=== PATIENT | male | born 1955 | race Caucasian/White ===

== ENCOUNTER 2017-07-22 10:57 | Day surgery (SDC) | payer MEDICAID ==
[~2017-07-22 10:57] MED LIST: BUPIVACAINE HCL 0.75% INJ/PF (7.5 MG/1 ML) 10 ML SDV OS PRN; CHONDR SU A NA/HYALUR INTRAOC KIT (SURGICARE) ONE; EPINEPHRINE INJ/PF 1 MG/1 ML AMPULE ONE; KETOROLAC TROMETHAMINE 0.45% 4 DROP/0.4 ML DROPERETTE OS PRN; LIDOCAINE 4% INJ/PF (40 MG/ML) 5 ML AMPUL OS PRN; NORMAL SALINE INJ/PF 0.9% 10 ML SDV ONE; VANCOMYCIN HCL INJ 1000 MG VIAL ONE
[2017-07-22] MEDS: TROPICAMIDE 1% OPH SOLN 3 ML OS PRN ×3 (11:23→11:43)
[2017-07-22] MEDS: CYCLOPENTOLATE 0.2%/PHENYLEPHRINE 1% OPH SOLN 2 ML OS PRN ×3 (11:23→11:43)
[2017-07-22] MEDS: BESIFLOXACIN HCL 0.6% OPH SUSP 5 ML BOTTLE OS PRN ×3 (11:23→12:37)
[2017-07-22] MEDS: TETRACAINE HCL 0.5% OPH SOLN 0.6 ML DROPERETTE OS PRN ×2 (11:24→11:43)
[2017-07-22] MEDS ORDERED: MIDAZOLAM 2 MG/2 ML INJ ONE ×2 (11:35→12:17)
[2017-07-22] MEDS ORDERED: FENTANYL CITRATE INJ/PF 100 MCG/2 ML AMPUL ONE (11:35)
[2017-07-22] MEDS ORDERED: WATER FOR INJECTION,STERILE 10 ML SDV ONE (11:51)
[2017-07-22] MEDS ORDERED: NORMAL SALINE INJ/PF 0.9% 10 ML SDV ONE (12:07)
--- NOTE | 2017-07-22 12:58 | [facility] OPERATIVE REPORT E ---
[facility] Operative Report NAME: HANS PLASCENCIA AGE: 62Y DATE OF SURGERY: 07/22/2017 ROOM: PREOPERATIVE DIAGNOSIS: CATARACT, LEFT EYE POSTOPERATIVE DIAGNOSIS: CATARACT, LEFT EYE. PROCEDURE PERFORMED: Phacoemulsification with posterior chamber intraocular lens, left eye. SURGEON: JESSICA LONGO M.D. ANESTHESIA: Topical with MAC. INDICATIONS FOR SURGERY: Difficulty driving and reading. Best corrected visual acuity 20/200. DESCRIPTION OF PROCEDURE: The patient was brought to the operating room and placed on the operative table. Following tetracaine drops, topical anesthesia was administered. This consisted of instrument wipe pledgets soaked in a solution of 4% Xylocaine mixed with 0.75% Marcaine in a 1:2 ratio. A 2 x 1 cm pledget was placed in the superior fornix. A 1 x 1 cm pledget was placed in the inferior fornix. The eye was patched shut for 5 minutes. The patch was removed. The eye was sterilely prepped and draped in the usual manner. Lid speculum was placed in the eye. The pledgets were removed, 4-0 black silk sutures were placed around the superior and the inferior rectus muscles to be used as traction. A conjunctival peritomy was made at the 10 o'clock position. Hemostasis was obtained with bipolar cautery. A posterior limbal groove was created using a crescent knife and dissected anteriorly towards the cornea. A sharp point blade was used to create a paracentesis site at the 2 o'clock position. A 2.4 mm keratome was used to enter the anterior chamber through the groove. Viscoelastic was injected into the anterior chamber. An anterior capsulotomy was performed using Utrata forceps in a capsulorrhexis fashion. Hydrodissection and hydrodelineation were performed. Phacoemulsification was performed in [id number]-[id number] technique. A total of 10.79 CDE total phaco time was used. Following this, the I/A unit was used to remove residual cortex. Viscoelastic was injected into the capsular bag. Intraocular lens Model [id number], 16.5 diopter, serial number [id number] was placed in the capsular bag. The I/A unit was used to removed residual viscoelastic. The wound was seen to be watertight under high and low pressure, and no sutures were placed. The intraocular lens was well centered. The pressure was adjusted in the eye to normal pressure. The 4-0 black silk sutures and lid speculum were removed. The eye was shielded after Besivance drops were placed. The patient tolerated the procedure well and was sent to the recovery room in good condition. DICTATING PHYSICIAN: JESSICA LONGO M.D. [id number] PHY#: [id number] ID: [id number] JOB#: [id number] ACCT: [id number] cc:JESSICA LONGO M.D. >
--- NOTE | 2017-07-22 12:58 | [facility] DISCHARGE SUMMARY E ---
[facility] Discharge Summary NAME: HANS PLASCENCIA AGE: 62Y ADMITTED: 07/22/2017 DISCHARGED: 07/22/2017 PREOPERATIVE DIAGNOSIS: CATARACT, LEFT EYE. POSTOPERATIVE DIAGNOSIS: CATARACT, LEFT EYE. HOSPITAL COURSE: Patient is a 62-year-old gentleman who underwent uneventful cataract extraction with intraocular lens implant, left eye, on 07/22/2017. DISPOSITION: He will be discharged to home. He is instructed to resume preoperative medications; take Tylenol as needed for discomfort; to keep his eye shielded; to use Pred Forte, Ketorolac, and Besivance 3:00 p.m. and 8:00 p.m.; and to follow up in my office in 1 day. DICTATING PHYSICIAN: JESSICA LONGO M.D. [id number] PHY#: [id number] ID: [id number] JOB#: [id number] ACCT: [id number] cc:JESSICA LONGO M.D. >
--- NOTE | 2017-07-22 13:33 | [facility] OPERATIVE REPORT E ---
[facility] Operative Report NAME: HANS PLASCENCIA AGE: 62Y DATE OF SURGERY: 07/22/2017 ROOM: ADDENDUM TO OPERATIVE NOTE: Following the surgery, 0.25 mg of vancomycin was injected in the inferior temporal conjunctiva. DICTATING PHYSICIAN: JESSICA LONGO M.D. [id number] PHY#: [id number] ID: [id number] JOB#: [id number] ACCT: [id number] cc:JESSICA LONGO M.D. >
[2017-07-22] MEDS ORDERED: LIDOCAINE 1% INJ-PF (10 MG/ML) 30 ML SDV ONE (14:09)
== END 2017-07-22 13:30 | disposition home or self-care (01) ==
LOC: SC 10:57
PROVIDERS: ATTEND Ophthalmology
PROC: 08RK3JZ Replacement of Left Lens with Synthetic Substitute, Percutaneous Approach (ICD-10-PCS; principal; 2017-07-22 12:00)
DX: H25.812 Combined forms of age-related cataract, left eye (principal); H01.011 Ulcerative blepharitis right upper eyelid; I10 Essential (primary) hypertension; E11.9 Type 2 diabetes mellitus without complications; Z79.899 Other long term (current) drug therapy; Z79.4 Long term (current) use of insulin; Z79.82 Long term (current) use of aspirin; Z86.14 Personal history of Methicillin resistant Staphylococcus aureus infection
CPT/HCPCS: 66984; 82962; V2632; J2250; J3490 ×7; J0171; J3010; J3370; 142

== ENCOUNTER 2018-11-14 10:16 | Inpatient (IN) | payer MEDICAID ==
--- NOTE | 2018-11-14 10:34 | ER Document Report ---
ED Medical Screen (RME) - General Chief Complaint: Wound Infection Stated Complaint: POSSIBLE ABSCESS Time Seen by Provider: 11/14/18 10:33 Primary Care Provider: TORY LI MD [Primary Care Provider] - Follow up as needed Mode of Arrival: Ambulatory Information source: Patient TRAVEL OUTSIDE OF THE [place] IN LAST 30 DAYS: No - HPI Patient complains to provider of: abscess Onset: Other - pt. with h/o MRSA with abscess in perineal area that has become swollen and tender - Related Data Allergies/Adverse Reactions: No Known Allergies Allergy (Verified 11/14/18 10:18) Past Medical History - Past Medical History Cardiac Medical History: Reports: Hx Hypercholesterolemia, Hx Hypertension Denies: Hx Heart Attack Pulmonary Medical History: Denies: Hx Asthma Neurological Medical History: Denies: Hx Cerebrovascular Accident, Hx Seizures Endocrine Medical History: Reports: Hx Diabetes Mellitus Type 2 GI Medical History: Denies: Hx Hepatitis, Hx Hiatal Hernia, Hx Ulcer Skin Medical History: Reports Hx MRSA Infectious Medical History: Denies: Hx Hepatitis Past Surgical History: Denies: Hx Open Heart Surgery, Hx Pacemaker - Immunizations Hx Diphtheria, Pertussis, Tetanus Vaccination: Yes Physical Exam - Vital signs Vitals: Temp Pulse Resp BP Pulse Ox 98.0 F 109 H 16 142/91 H 97 11/14/18 10:21 11/14/18 10:21 11/14/18 10:21 11/14/18 10:21 11/14/18 10:21 Course - Vital Signs Vital signs: Temp Pulse Resp BP Pulse Ox 98.0 F 109 H 16 142/91 H 97 11/14/18 10:21 11/14/18 10:21 11/14/18 10:21 11/14/18 10:21 11/14/18 10:21 Doctor's Discharge - Discharge Referrals: TORY LI MD [Primary Care Provider] - Follow up as needed
[2018-11-14] MEDS ORDERED: CLINDAMYCIN 600 MG/D5W RTU 600 MG/50 ML RTUPB IV ONE (11:24)
--- NOTE | 2018-11-14 11:35 | ER Document Report ---
Addendum entered and electronically signed by CASH SCHAFER PA-C 11/14/18 12:08: Discharge - Discharge Clinical Impression: Abdominal wall abscess Condition: Stable Disposition: ADMITTED INPATIENT Admitting Provider: Dhaval Unit Admitted: Medical Floor Course - Re-evaluation Re-evalutation: 11/14/18 12:07 Dr. Li patient and Dr. Puentes is covering who will admit pt to medical floor. - Vital Signs Vital signs: Temp Pulse Resp BP Pulse Ox 98.0 F 109 H 16 142/91 H 97 11/14/18 10:21 11/14/18 10:21 11/14/18 10:21 11/14/18 10:21 11/14/18 10:21 - Laboratory Result Diagrams: 11/14/18 11:52 11/14/18 11:52 Laboratory results interpreted by me: 11/14/18 11:43 POC Glucose 336 H Original Note: ED General - General Chief Complaint: Wound Infection Stated Complaint: POSSIBLE ABSCESS Time Seen by Provider: 11/14/18 10:33 Primary Care Provider: TORY LI MD [Primary Care Provider] - Follow up as needed Mode of Arrival: Ambulatory TRAVEL OUTSIDE OF THE [place] IN LAST 30 DAYS: No - HPI Notes: Patient is a 63-year-old male with a history of MRSA who presents to the emergency department complaining of another development of possible abscess to his suprapubic area of his abdomen that began 5 days ago. Patient states that he is needed incision and drainage performed in the past. He has had issues with MRSA for 10 years. Denies drug allergies. He is a type II diabetic and has HTN. He is not on any blood thinning medication aside from aspirin. Patient states that he has been eating and drinking without difficulty. He is urinating normally and having normal bowel movements. Denies drug allergies. No other concerns or complaints. Denies any headache, fever, neck pain, URI, sore throat, chest pain, palpitations, syncope, cough, shortness of breath, wheeze, dyspnea, abdominal pain, nausea/vomiting/diarrhea, urinary retention, dysuria, hematuria. - Related Data Allergies/Adverse Reactions: No Known Allergies Allergy (Verified 11/14/18 10:18) Past Medical History - General Information source: Patient - Social History Smoking Status: Never Smoker Chew tobacco use (# tins/day): No Frequency of alcohol use: None Drug Abuse: None Family History: Reviewed & Not Pertinent Patient has suicidal ideation: No Patient has homicidal ideation: No - Past Medical History Cardiac Medical History: Reports: Hx Hypercholesterolemia, Hx Hypertension Denies: Hx Heart Attack Pulmonary Medical History: Denies: Hx Asthma Neurological Medical History: Denies: Hx Cerebrovascular Accident, Hx Seizures Endocrine Medical History: Reports: Hx Diabetes Mellitus Type 2 Renal/ Medical History: Denies: Hx Peritoneal Dialysis GI Medical History: Denies: Hx Hepatitis, Hx Hiatal Hernia, Hx Ulcer Skin Medical History: Reports Hx MRSA Infectious Medical History: Denies: Hx Hepatitis Past Surgical History: Denies: Hx Open Heart Surgery, Hx Pacemaker - Immunizations Hx Diphtheria, Pertussis, Tetanus Vaccination: Yes Review of Systems - Review of Systems -: Yes All other systems reviewed and negative Physical Exam - Vital signs Vitals: Temp Pulse Resp BP Pulse Ox 98.0 F 109 H 16 142/91 H 97 11/14/18 10:21 11/14/18 10:21 11/14/18 10:21 11/14/18 10:21 11/14/18 10:21 - Notes Notes: PHYSICAL EXAMINATION: GENERAL: Well-appearing, well-nourished and in no acute distress. HEAD: Atraumatic, normocephalic. EYES: Pupils equal round and reactive to light, extraocular movements intact, sclera anicteric, conjunctiva are normal. ENT: Nares patent and without discharge. oropharynx clear without exudates. No tonsilar hypertrophy or erythema. Moist mucous membranes. NECK: Normal range of motion, supple without lymphadenopathy LUNGS: Breath sounds clear to auscultation bilaterally and equal. No wheezes rales or rhonchi. HEART: Regular rate and rhythm without murmurs, rubs, gallops. ABDOMEN: Soft, nondistended abdomen. No guarding, no rebound. Normal bowel sounds present. No CVA tenderness bilaterally. see skin below. Musculoskeletal: FROM to passive/active. Strength 5+/5. Extremities: No cyanosis, clubbing, or edema b/l. Peripheral pulses 2+. Capillary refill less than 3 seconds. NEUROLOGICAL: Cranial nerves grossly intact. Normal speech, normal gait. Normal sensory, motor exams PSYCH: Normal mood, normal affect. SKIN: there is a large 6"x3" indurated erythemic, warm area to the suprapubic ab d. + tenderness associated. Mild surrounding erythema noted. Course - Re-evaluation Re-evalutation: 11/14/18 11:37 Patient is an afebrile, well-hydrated, 63-year-old male who presents the emergency department with an abscess, suspect MRSA. Vitals are currently acceptable without significant tachycardia, tachypnea, or hypoxia. PE is otherwise unremarkable aside from the abscess/indurated area noted. General surgeon was notified after initial evaluation who also evaluated the patient and recommended surgery. Patient last ate cookies at 9 AM and drink some milk at that time. Labs and preop workup have been ordered. Patient to remain n.p.o. and IV clindamycin will be started. Dr. Amlonte accept pt (surgeon). Patient is in agreement with plan. 11/14/18 11:[address] almonte, sugar is 336 by accucheck. He would like hospitalist admit with surg consult. Spoke with Dr. Lieberman who accepted pt for admit. Labs pending. - Vital Signs Vital signs: Temp Pulse Resp BP Pulse Ox 98.0 F 109 H 16 142/91 H 97 11/14/18 10:21 11/14/18 10:21 11/14/18 10:21 11/14/18 10:21 11/14/18 10:21 - Laboratory Laboratory results interpreted by me: 11/14/18 11:43 POC Glucose 336 H Discharge - Discharge Clinical Impression: Abdominal wall abscess Condition: Stable Disposition: ADMITTED INPATIENT Admitting Provider: Hospitalist - Dr. Lieberman Unit Admitted: Telemetry Referrals: TORY LI MD [Primary Care Provider] - Follow up as needed
--- NOTE | 2018-11-14 11:59 | PDOC H&P ---
History of Present Illness Admission Date/PCP: 11/14/18 11:44 TORY LI History of Present Illness: HANS PLASCENCIA is a 63 year old male Patient is a 63-year-old male with a history of MRSA who presents to the emergency department complaining of another development of possible abscess to his suprapubic area of his abdomen that began 5 days ago. Patient states that he is needed incision and drainage performed in the past. He has had issues with MRSA for 10 years. Denies drug allergies. He is a type II diabetic and has HTN. He is not on any blood thinning medication aside from aspirin. Past Medical History Cardiac Medical History: Reports: Hyperlipidema, Hypertension Denies: Myocardial Infarction Pulmonary Medical History: Denies: Asthma Neurological Medical History: Denies: Seizures Endocrine Medical History: Reports: Diabetes Mellitus Type 2 GI Medical History: Denies: Hepatitis, Hiatal Hernia Psychiatric Medical History: Reports: None Hematology: Denies: Anemia, Sickle Cell Disease Past Surgical History Past Surgical History: Denies: Pacemaker Social History Smoking Status: Never Smoker Family History Family History: Reviewed & Not Pertinent Parental Family History Reviewed: No Children Family History Reviewed: No Sibling(s) Family History Reviewed.: No Medication/Allergy Home Medications: Aspirin [Aspirin EC] 81 mg PO DAILY 07/11/17 Glimepiride 4 mg PO DAILY 07/11/17 Metformin HCl [Metformin HCl ER] 1,000 mg PO BID 07/11/17 Simvastatin 40 mg PO QHS 07/11/17 Empagliflozin [Jardiance] 25 mg PO DAILY 11/14/18 Allergies/Adverse Reactions: No Known Allergies Allergy (Verified 11/14/18 10:18) Review of Systems Constitutional: PRESENT: fatigue Nose, Mouth, and Throat: PRESENT: other - nol complaints Cardiovascular: PRESENT: other - no chest pain or hx of cardiac disease Gastrointestinal: PRESENT: other - no generalized abd pain Genitourinary: PRESENT: other - no dysuria Musculoskeletal: PRESENT: other - no complaints Integumentary: PRESENT: other - has c/o old drained abscess both posterior calfs Neurological: PRESENT: other - no neuro complaints Psychiatric: PRESENT: other - no complaints Endocrine: PRESENT: other - no cold or heat intolerance Allergic/Immunologic: PRESENT: other - no known immunologic problems Physical Exam Vital Signs: Temp Pulse Resp BP Pulse Ox 98.0 F 109 H 16 142/91 H 97 03/23/19 10:21 11/14/18 10:21 11/14/18 10:21 11/14/18 10:21 11/14/18 10:21 Intake & Output 11/13/18 11/14/18 11/15/18 06:59 06:59 06:59 Weight 98.9 kg General appearance: PRESENT: no acute distress Head exam: PRESENT: atraumatic Eye exam: PRESENT: EOMI Ear exam: PRESENT: normal external ear exam Mouth exam: PRESENT: moist Neck exam: PRESENT: full ROM Respiratory exam: PRESENT: clear to auscultation eduardo Cardiovascular exam: PRESENT: RRR Pulses: PRESENT: normal radial pulses, normal femoral pulses Vascular exam: PRESENT: normal capillary refill GI/Abdominal exam: PRESENT: soft Rectal exam: PRESENT: deferred Gentrourinary exam: PRESENT: other - large suprpubic abscess with 15cm area over mons pubis that is cellulitic with approx 8cm fluctuant abscess Extremities exam: PRESENT: full ROM Musculoskeletal exam: PRESENT: full ROM Neurological exam: PRESENT: alert, awake, oriented to person, oriented to time, oriented to situation Skin exam: PRESENT: warm Assessment & Plan - Plan Summary Plan Summary: large suprapubic abscess, hx of mrsa diabetes with elevated blood glucose plan after admit and eval by medicine for his diabetes will plan on incision and drainage of suprapubic abscess discussed risks of bleeding ,infection recurrent abscesses, need for additional surgery skin loss. pt understands and agrees to proceed.
--- NOTE | 2018-11-14 12:22 | RADIOLOGY REPORT (SQ) ---
EXAM DESCRIPTION: CHEST SINGLE VIEW COMPLETED DATE/TIME: 11/14/2018 12:11 pm REASON FOR STUDY: pre-op COMPARISON: None. NUMBER OF VIEWS: One view. TECHNIQUE: Single frontal radiographic view of the chest acquired. LIMITATIONS: None. FINDINGS: LUNGS AND PLEURA: No opacities, masses or pneumothorax. No pleural effusion. MEDIASTINUM AND HILAR STRUCTURES: No masses. Contour normal. HEART AND VASCULAR STRUCTURES: Heart normal in size. Normal vasculature. BONES: No acute findings. HARDWARE: None in the chest. OTHER: No other significant finding. IMPRESSION: NO SIGNIFICANT RADIOGRAPHIC FINDING IN THE CHEST. TECHNICAL DOCUMENTATION: JOB ID: [id number] [employer]- All Rights Reserved Reading location - IP/workstation name: [email or web address]
[2018-11-14 12:31] LABS: ABSOLUTE EOSINOPHILS # (AUTO) 0.3 10^3/uL (0.0-0.6); ABSOLUTE LYMPHOCYTES (AUTO) 1.3 10^3/uL (0.5-4.7); ABSOLUTE MONOCYTES (AUTO) 1.3 10^3/uL (0.1-1.4); BASOPHILS % (AUTO) 0.3 % (0-2); EOSINOPHILS % (AUTO) 2.4 % (0-6); HEMATOCRIT 42.2 % (37.9-51.0); HEMOGLOBIN 14.5 g/dL (13.5-17.0); LYMPHOCYTES % (AUTO) 9.9 % (13-45); MEAN CORPUSCULAR HEMOGLOBIN 28.8 pg (27.0-33.4); MEAN CORPUSCULAR HGB CONC 34.4 g/dL (32.0-36.0); MEAN CORPUSCULAR VOLUME 84 fl (80-97); MONOCYTES % (AUTO) 9.8 % (3-13); PLATELET COUNT 289 10^3/uL (150-450); RED BLOOD COUNT 5.05 10^6/uL (4.35-5.55); SEGMENTED NEUTROPHILS % (AUTO) 77.6 % (42-78); TOTAL CELLS COUNTED % (AUTO) 100 %; WHITE BLOOD COUNT 12.9 10^3/uL (4.0-10.5)
--- NOTE | 2018-11-14 12:31 | EKG REPORT ---
SEVERITY:- BORDERLINE ECG - SINUS TACHYCARDIA BORDERLINE T ABNORMALITIES, INFERIOR LEADS : Confirmed by: Nathan Vega 14-Nov-2018 12:31:08
[2018-11-14 12:49] LABS: ALANINE AMINOTRANSFERASE 22 U/L (21-72); ALBUMIN 4.2 g/dL (3.5-5.0); ALKALINE PHOSPHATASE 78 U/L (38-126); ANION GAP 14 (5-19); ASPARTATE AMINO TRANSFERASE 17 U/L (17-59); BILIRUBIN,DIRECT 0.3 mg/dL (0.0-0.4); BILIRUBIN,TOTAL 0.7 mg/dL (0.2-1.3); BLOOD UREA NITROGEN 19 mg/dL (7-20); CARBON DIOXIDE 23 mmol/L (22-30); CHLORIDE 96 mmol/L (98-107); GLUCOSE 363 mg/dL (75-110); POTASSIUM 4.7 mmol/L (3.6-5.0); SODIUM 133.4 mmol/L (137-145); TOTAL PROTEIN 7.1 g/dL (6.3-8.2)
[2018-11-14] MEDS ORDERED: DEXTROSE 40% GEL 15 GM TUBE PO PRN ×2 (14:47)
[2018-11-14] MEDS ORDERED: GLUCAGON,HUMAN RECOMB 1 MG INJ IM PRN (14:47)
[2018-11-14] MEDS ORDERED: DEXTROSE 50%-WATER 25 GM/50 ML DISP.SYRIN IV PRN ×2 (14:47)
[2018-11-14] MEDS ORDERED: MIDAZOLAM 2 MG/2 ML INJ ONE (15:15)
[2018-11-14] MEDS ORDERED: FENTANYL CITRATE INJ/PF 100 MCG/2 ML AMPUL ONE ×2 (15:15→15:16)
[2018-11-14] MEDS ORDERED: PROPOFOL INJ 200 MG/20 ML VIAL IV ONE (15:15)
[2018-11-14] MEDS ORDERED: ACETAMINOPHEN 1,000 MG/100 ML RTUPB IV ONE (15:15)
[2018-11-14] MEDS ORDERED: LIDOCAINE 2% INJ-PF (100 MG/5 ML) SYRINGE ONE (15:15)
[2018-11-14] MEDS ORDERED: ONDANSETRON HCL INJ/PF 4 MG/2 ML SDV ONE (15:15)
[2018-11-14 15:20] LABS: FREE T4 (FREE THYROXINE) 1.32 ng/dL (0.78-2.19)
[2018-11-14 15:33] LABS: THYROID STIMULATING HORMONE 1.79 uIU/mL (0.47-4.68)
[2018-11-14] MEDS ORDERED: FENTANYL CITRATE INJ/PF 100 MCG/2 ML AMPUL IV PRN ×3 (16:17)
[2018-11-14] MEDS ORDERED: OXYCODONE-ACETAMINOPHEN 5-325 MG TABLET PO PRN ×2 (16:17)
[2018-11-14] MEDS ORDERED: ONDANSETRON HCL INJ/PF 4 MG/2 ML SDV IV PRN (16:17)
[2018-11-14] MEDS ORDERED: DIPHENHYDRAMINE HCL 50 MG/ML VIAL IV PRN (16:17)
[2018-11-14] MEDS ORDERED: PROMETHAZINE HCL INJ 25 MG/1 ML VIAL IV PRN ×2 (16:17)
[2018-11-14] MEDS ORDERED: MEPERIDINE HCL/PF INJ 25 MG/1 ML DISP.SYRIN IV PRN (16:17)
--- NOTE | 2018-11-14 16:40 | Operative Report ---
Nonrecallable Operative Report PREOPERATIVE DIAGNOSIS: suprapubic abscess POSTOPERATIVE DIAGNOSIS: suprpubic abscess OPERATION: incision,drainage,debridement of suprapubic abscess SURGEON: XAVIER HENRY ANESTHESIA: GA TISSUE REMOVED OR ALTERED: suprapubic fatty tissue COMPLICATIONS: none ESTIMATED BLOOD LOSS: 25cc INTRAOPERATIVE FINDINGS: multiloculated abscess PROCEDURE: see dictation
--- NOTE | 2018-11-14 18:15 | PDOC H&P ---
History of Present Illness Admission Date/PCP: 11/14/18 12:10 GAURAV REZA MD History of Present Illness: HANS PLASCENCIA is a 63 year old male, he has a history of type 2 diabetes mellitus, he came to the emergency room for evaluation of swelling in the lower abdomen involving the suprapubic mons pubis. He has a history of MRSA skin abscesses in the past that was incised and drained. In the emergency room he was evaluated the presentation was consistent with abscess, the hemoglobin A1c is 10 suggesting poorly controlled diabetes mellitus. Patient was seen by the surgeon director organizational Dr. Kwabena Marie, he was taken to the OR for incision and drainage and debridement of suprapubic abscess. Copious amount of abscess was identified in the suprapubic area there are multiloculated abscess in the subcutaneous fat Past Medical History Cardiac Medical History: Reports: Hyperlipidema, Hypertension Endocrine Medical History: Reports: Diabetes Mellitus Type 2 Psychiatric Medical History: Reports: None Infectious Medical History: Reports: Methicillin-Resistant Staph Aureus Social History Smoking Status: Never Smoker - Advance Directive Resuscitation Status: Full Code Family History Family History: Reviewed & Not Pertinent Parental Family History Reviewed: Yes Children Family History Reviewed: Yes Sibling(s) Family History Reviewed.: Yes Medication/Allergy Home Medications: Aspirin [Ecotrin 81 mg EC Tablet] 81 mg PO DAILY 11/14/18 Empagliflozin [Jardiance] 25 mg PO DAILY 11/14/18 Glimepiride [Amaryl 4 mg Tablet] 4 mg PO DAILY 11/14/18 Hydrochlorothiazide [Hydrodiuril 25 mg Tablet] 25 mg PO DAILY 11/14/18 Hydroxyzine HCl [Atarax 25 mg Tablet] 25 mg PO QIDP PRN 11/14/18 Losartan Potassium [Cozaar 50 mg Tablet] 50 mg PO DAILY 11/14/18 Metformin HCl [Glucophage 500 mg Tablet] 1,000 mg PO BID 11/14/18 Simvastatin [Zocor 40 mg Tablet] 40 mg PO QHS 11/14/18 Allergies/Adverse Reactions: No Known Allergies Allergy (Verified 11/14/18 10:18) Review of Systems Constitutional: ABSENT: chills, fever(s), headache(s), weight gain, weight loss Eyes: ABSENT: visual disturbances Ears: ABSENT: hearing changes Cardiovascular: ABSENT: chest pain, dyspnea on exertion, edema, orthropnea, palpitations Respiratory: ABSENT: cough, hemoptysis Gastrointestinal: ABSENT: abdominal pain, constipation, diarrhea, hematemesis, hematochezia, nausea, vomiting Genitourinary: ABSENT: dysuria, hematuria Musculoskeletal: ABSENT: joint swelling Integumentary: ABSENT: rash, wounds Neurological: ABSENT: abnormal gait, abnormal speech, confusion, dizziness, focal weakness, syncope Psychiatric: ABSENT: anxiety, depression, homidical ideation, suicidal ideation Endocrine: ABSENT: cold intolerance, heat intolerance, menstrual abnormalities, polydipsia, polyuria Hematologic/Lymphatic: ABSENT: easy bleeding, easy bruising, lymphadenopathy Physical Exam Vital Signs: Temp Pulse Resp BP Pulse Ox 97.5 F 100 14 121/70 94 11/14/18 17:06 11/14/18 17:06 11/14/18 17:06 11/14/18 17:06 11/14/18 17:06 Intake & Output 11/13/18 11/14/18 11/15/18 06:59 06:59 06:59 Intake Total 1360 Output Total 170 Balance 1190 Weight 98.9 kg General appearance: PRESENT: no acute distress, well-developed, well-nourished Head exam: PRESENT: atraumatic, normocephalic Eye exam: PRESENT: conjunctiva pink, EOMI, PERRLA Ear exam: PRESENT: normal external ear exam Mouth exam: PRESENT: moist, tongue midline Neck exam: PRESENT: full ROM Respiratory exam: PRESENT: clear to auscultation eduardo Cardiovascular exam: PRESENT: RRR, +S1, +S2 GI/Abdominal exam: PRESENT: tenderness, other - Suprapubic swelling, redness consistent with abscess Rectal exam: PRESENT: deferred Neurological exam: PRESENT: alert, awake, oriented to person, oriented to place, oriented to time, oriented to situation, CN II-XII grossly intact Psychiatric exam: PRESENT: appropriate affect, normal mood Skin exam: PRESENT: dry, intact, warm Results Laboratory Results: 11/14/18 11:52 11/14/18 11:52 11/14/18 11/14/18 11/14/18 11:52 11:52 11:52 WBC 12.9 H RBC 5.05 Hgb 14.5 Hct 42.2 MCV 84 MCH 28.8 MCHC 34.4 RDW 14.0 Plt Count 289 Seg Neutrophils % 77.6 Lymphocytes % 9.9 L Monocytes % 9.8 Eosinophils % 2.4 Basophils % 0.3 Absolute Neutrophils 10.0 H Absolute Lymphocytes 1.3 Absolute Monocytes 1.3 Absolute Eosinophils 0.3 Absolute Basophils 0.0 Sodium 133.4 L Potassium 4.7 Chloride 96 L Carbon Dioxide 23 Anion Gap 14 BUN 19 Creatinine 0.92 Est GFR ( Amer) > 60 Est GFR (Non-Af Amer) > 60 Glucose 363 H Calcium 10.0 Total Bilirubin 0.7 AST 17 ALT 22 Alkaline Phosphatase 78 Total Protein 7.1 Albumin 4.2 TSH 1.79 Free T4 1.32 Impressions: Chest X-Ray 11/14/18 11:34 IMPRESSION: NO SIGNIFICANT RADIOGRAPHIC FINDING IN THE CHEST. Assessment & Plan - Diagnosis (1) Abdominal wall abscess Plan: He has a history of MRSA, the culture from the abscess is growing gram-positive cocci in clusters suggesting staph, he was initially empirically started on clindamycin, this will be changed to vancomycin (2) T2DM (type 2 diabetes mellitus) Qualifiers: Diabetes mellitus senior living insulin use: without senior living use Diabetes mellitus complication status: with neurologic complications Diabetes mellitus complication detail: with polyneuropathy Qualified Code(s): E11.42 - Type 2 diabetes mellitus with diabetic polyneuropathy Is this a current diagnosis for this admission?: Yes Plan: The diabetes is poorly controlled, hemoglobin A1c is 10
[2018-11-14] MEDS: CLINDAMYCIN 600 MG/D5W RTU 600 MG/50 ML RTUPB IV SCH (19:02)
[2018-11-14] MEDS: ENOXAPARIN SODIUM INJ 40 MG/0.4 ML DISP.SYRIN SUBCUT SCH (19:03)
[2018-11-14] MEDS: INSULIN LISPRO 100 UNIT/ML 3 ML VIAL SUBCUT SCH ×2 (19:06→22:43)
--- NOTE | 2018-11-14 19:08 | OPERATIVE REPORT E ---
Operative Report NAME: HANS PLASCENCIA : 1955 AGE: 63Y DATE OF SURGERY: 11/14/2018 ROOM: 209 PREOPERATIVE DIAGNOSIS: SUPRAPUBIC ABSCESS. POSTOPERATIVE DIAGNOSIS: SUPRAPUBIC ABSCESS. OPERATIVE PROCEDURE: Incision and drainage and debridement of suprapubic abscess. SURGEON: XAVIER HENRY M.D. PROCEDURE IN DETAIL: The patient was brought to the operating room in an awake, alert, and stable condition. Placed on the operating room table in supine position. Induced under general anesthesia, intubated. The lower abdomen and suprapubic mons pubis were prepared and draped in the usual sterile manner. A transverse incision was made directly over the mons pubis over the point of the abscess. Dissection was carried down through the subcutaneous tissue with Bovie cautery. We initially identified a loculated abscess cavity that was small about 10 to 15 cc of pus, which was drained and sent for culture. I then quickly got through the subcutaneous tissue and identified the fact that all the subcutaneous fat had multiloculated abscesses within in for approximately 8 cm long by 4 cm wide. Therefore, I raised skin flaps cranially and caudally on the mons pubis between the lower abdomen and the pelvic tubercle. This was done with Bovie cautery. The incision was approximately 15 cm long and I excised the mons pubis subcutaneous fat with Bovie cautery circumferentially around that abscess cavity to remove all loculated abscesses. After this was complete the Ras's fascia was identified and it was noted to be intact and not infected. The bladder was not injured and the cord structures were uninjured. They were both identified, however. We then copiously irrigated the surgical cavity with normal saline, suctioned dry. Hemostasis was obtained with Bovie cautery. It was then packed with a Betadine soaked Kerlix gauze and a sterile dressing was applied, which completed the procedure. Estimated blood loss is 25 mL. Sponge and needle counts were correct x2. The patient was then transferred to recovery in stable condition. No complications. DICTATING PHYSICIAN: XAVIER HENRY M.D. [id number] PHY#: [id number] ID: [id number] JOB#: [id number] ACCT: [id number] cc:XAVIER HENRY M.D. >
[2018-11-14] MEDS: TRAMADOL HCL 50 MG TABLET PO PRN (22:06)
[2018-11-15] MEDS: CLINDAMYCIN 600 MG/D5W RTU 600 MG/50 ML RTUPB IV SCH ×2 (02:16→09:20)
[2018-11-15] MEDS: TRAMADOL HCL 50 MG TABLET PO PRN ×2 (04:57→13:10)
[2018-11-15 08:03] LABS: ABSOLUTE EOSINOPHILS # (AUTO) 0.3 10^3/uL (0.0-0.6); ABSOLUTE LYMPHOCYTES (AUTO) 1.2 10^3/uL (0.5-4.7); ABSOLUTE MONOCYTES (AUTO) 1.2 10^3/uL (0.1-1.4); ABSOLUTE NEUT (AUTO) 7.5 10^3/uL (1.7-8.2); BASOPHILS % (AUTO) 0.3 % (0-2); EOSINOPHILS % (AUTO) 2.7 % (0-6); HEMATOCRIT 36.3 % (37.9-51.0); HEMOGLOBIN 12.6 g/dL (13.5-17.0); LYMPHOCYTES % (AUTO) 11.6 % (13-45); MEAN CORPUSCULAR HGB CONC 34.8 g/dL (32.0-36.0); MEAN CORPUSCULAR VOLUME 83 fl (80-97); MONOCYTES % (AUTO) 11.6 % (3-13); PLATELET COUNT 256 10^3/uL (150-450); RED BLOOD COUNT 4.36 10^6/uL (4.35-5.55); RED CELL DISTRIBUTION WIDTH 13.9 % (11.5-14.0); SEGMENTED NEUTROPHILS % (AUTO) 73.8 % (42-78); TOTAL CELLS COUNTED % (AUTO) 100 %; WHITE BLOOD COUNT 10.1 10^3/uL (4.0-10.5)
[2018-11-15] MEDS: INSULIN LISPRO 100 UNIT/ML 3 ML VIAL SUBCUT SCH ×4 (08:14→22:02)
[2018-11-15 08:18] LABS: ALANINE AMINOTRANSFERASE 19 U/L (21-72); ALBUMIN 3.4 g/dL (3.5-5.0); ALKALINE PHOSPHATASE 64 U/L (38-126); ANION GAP 12 (5-19); ASPARTATE AMINO TRANSFERASE 16 U/L (17-59); BILIRUBIN,DIRECT 0.3 mg/dL (0.0-0.4); BILIRUBIN,TOTAL 0.8 mg/dL (0.2-1.3); BLOOD UREA NITROGEN 15 mg/dL (7-20); CALCIUM 9.1 mg/dL (8.4-10.2); CARBON DIOXIDE 20 mmol/L (22-30); CHLORIDE 101 mmol/L (98-107); GLUCOSE 167 mg/dL (75-110); POTASSIUM 4.2 mmol/L (3.6-5.0); SODIUM 133.3 mmol/L (137-145); TOTAL PROTEIN 6.5 g/dL (6.3-8.2)
[2018-11-15] MEDS: ENOXAPARIN SODIUM INJ 40 MG/0.4 ML DISP.SYRIN SUBCUT SCH (09:20)
[2018-11-15] MEDS ORDERED: (PENDING PHARMACY ID) (Hydroxyzine Hcl [Atarax 25 Mg Tablet] 25 MG) PO PRN (11:08)
[2018-11-15] MEDS ORDERED: (PENDING PHARMACY ID) (Empagliflozin [Jardiance] 25 MG) PO SCH (11:15)
[2018-11-15] MEDS ORDERED: VANCOMYCIN HCL 0 MG in DEXTROSE 5%-WATER 250 ML IV NR (11:30)
--- NOTE | 2018-11-15 12:31 | PDOC PROGRESS REPORT ---
Subjective Progress Note for:: 11/15/18 Reason For Visit: LARGE ABSCESS IN THE SUPRAPUBIC AREA, H/O MRSA Physical Exam Vital Signs: Temp Pulse Resp BP Pulse Ox 98.1 F 96 16 134/79 H 97 11/15/18 11:31 11/15/18 11:31 11/15/18 11:31 11/15/18 11:31 11/15/18 08:22 Intake & Output 11/14/18 11/15/18 11/16/18 06:59 06:59 06:59 Intake Total 1680 50 Output Total 720 Balance 960 50 Weight 98.9 kg General appearance: PRESENT: no acute distress Head exam: PRESENT: normocephalic Eye exam: PRESENT: EOMI Mouth exam: PRESENT: moist Neck exam: PRESENT: full ROM Respiratory exam: PRESENT: clear to auscultation eduardo Cardiovascular exam: PRESENT: RRR Pulses: PRESENT: normal radial pulses, normal femoral pulses, +2 pedal pulses bilateral Vascular exam: PRESENT: normal capillary refill GI/Abdominal exam: PRESENT: soft Rectal exam: PRESENT: deferred Gentrourinary exam: PRESENT: other - suprapubic abscess cavity,pack removed wound clean, decreased cellulitis wound repacked Neurological exam: PRESENT: alert, oriented to person, oriented to place, oriented to time, oriented to situation Psychiatric exam: PRESENT: appropriate affect Skin exam: PRESENT: dry Results Laboratory Results: 11/15/18 07:30 11/15/18 07:30 11/14/18 11/14/18 11/14/18 11:52 11:52 11:52 WBC 12.9 H RBC 5.05 Hgb 14.5 Hct 42.2 MCV 84 MCH 28.8 MCHC 34.4 RDW 14.0 Plt Count 289 Seg Neutrophils % 77.6 Lymphocytes % 9.9 L Monocytes % 9.8 Eosinophils % 2.4 Basophils % 0.3 Absolute Neutrophils 10.0 H Absolute Lymphocytes 1.3 Absolute Monocytes 1.3 Absolute Eosinophils 0.3 Absolute Basophils 0.0 Sodium 133.4 L Potassium 4.7 Chloride 96 L Carbon Dioxide 23 Anion Gap 14 BUN 19 Creatinine 0.92 Est GFR ( Amer) > 60 Est GFR (Non-Af Amer) > 60 Glucose 363 H Calcium 10.0 Total Bilirubin 0.7 AST 17 ALT 22 Alkaline Phosphatase 78 Total Protein 7.1 Albumin 4.2 TSH 1.79 Free T4 1.32 11/15/18 11/15/18 07:30 07:30 WBC 10.1 RBC 4.36 Hgb 12.6 L Hct 36.3 L MCV 83 MCH 29.0 MCHC 34.8 RDW 13.9 Plt Count 256 Seg Neutrophils % 73.8 Lymphocytes % 11.6 L Monocytes % 11.6 Eosinophils % 2.7 Basophils % 0.3 Absolute Neutrophils 7.5 Absolute Lymphocytes 1.2 Absolute Monocytes 1.2 Absolute Eosinophils 0.3 Absolute Basophils 0.0 Sodium 133.3 L Potassium 4.2 Chloride 101 Carbon Dioxide 20 L Anion Gap 12 BUN 15 Creatinine 0.81 Est GFR ( Amer) > 60 Est GFR (Non-Af Amer) > 60 Glucose 167 H Calcium 9.1 Total Bilirubin 0.8 AST 16 L ALT 19 L Alkaline Phosphatase 64 Total Protein 6.5 Albumin 3.4 L TSH Free T4 Impressions: Chest X-Ray 11/14/18 11:34 IMPRESSION: NO SIGNIFICANT RADIOGRAPHIC FINDING IN THE CHEST. Assessment & Plan - Plan Summary Plan Summary: wound dressing remove wound base clean, no further necrotic tissue repacked with wet to dry kerlix gauze will place vac tomorrow.
[2018-11-15] MEDS: LOSARTAN POTASSIUM 50 MG TABLET PO SCH (13:10)
[2018-11-15] MEDS: HYDROCHLOROTHIAZIDE 25 MG TABLET PO SCH (13:10)
[2018-11-15] MEDS: ASPIRIN 81 MG TABLET, ENT COATED PO SCH (13:10)
[2018-11-15] MEDS: GLIMEPIRIDE 4 MG TABLET PO SCH (13:10)
--- NOTE | 2018-11-15 14:16 | PDOC PROGRESS REPORT ---
Subjective Progress Note for:: 11/15/18 Subjective:: Patient was seen by the bedside, he had I&D done of the suprapubic abscess yesterday, he has mild pain at the site of incision Reason For Visit: LARGE ABSCESS IN THE SUPRAPUBIC AREA, H/O MRSA Physical Exam Vital Signs: Temp Pulse Resp BP Pulse Ox 98.1 F 96 16 134/79 H 97 11/15/18 11:31 11/15/18 11:31 11/15/18 11:31 11/15/18 11:31 11/15/18 08:22 Intake & Output 11/14/18 11/15/18 11/16/18 06:59 06:59 06:59 Intake Total 1680 50 Output Total 720 Balance 960 50 Weight 98.9 kg General appearance: PRESENT: no acute distress, well-developed, well-nourished Head exam: PRESENT: atraumatic, normocephalic Eye exam: PRESENT: conjunctiva pink, EOMI, PERRLA Ear exam: PRESENT: normal external ear exam Mouth exam: PRESENT: moist, tongue midline Neck exam: PRESENT: full ROM Respiratory exam: PRESENT: clear to auscultation eduardo Cardiovascular exam: PRESENT: RRR, +S1, +S2 Pulses: PRESENT: normal dorsalis pedis pul, +2 pedal pulses bilateral Vascular exam: PRESENT: normal capillary refill GI/Abdominal exam: PRESENT: normal bowel sounds, soft Rectal exam: PRESENT: deferred Neurological exam: PRESENT: alert, awake, oriented to person, oriented to place, oriented to time, oriented to situation, CN II-XII grossly intact Skin exam: PRESENT: dry, intact, warm. ABSENT: cyanosis, rash Results Laboratory Results: 11/15/18 07:30 11/15/18 07:30 11/14/18 11/15/18 11/15/18 11:52 07:30 07:30 WBC 10.1 RBC 4.36 Hgb 12.6 L Hct 36.3 L MCV 83 MCH 29.0 MCHC 34.8 RDW 13.9 Plt Count 256 Seg Neutrophils % 73.8 Lymphocytes % 11.6 L Monocytes % 11.6 Eosinophils % 2.7 Basophils % 0.3 Absolute Neutrophils 7.5 Absolute Lymphocytes 1.2 Absolute Monocytes 1.2 Absolute Eosinophils 0.3 Absolute Basophils 0.0 Sodium 133.3 L Potassium 4.2 Chloride 101 Carbon Dioxide 20 L Anion Gap 12 BUN 15 Creatinine 0.81 Est GFR ( Amer) > 60 Est GFR (Non-Af Amer) > 60 Glucose 167 H Calcium 9.1 Total Bilirubin 0.8 AST 16 L ALT 19 L Alkaline Phosphatase 64 Total Protein 6.5 Albumin 3.4 L TSH 1.79 Free T4 1.32 Impressions: Chest X-Ray 11/14/18 11:34 IMPRESSION: NO SIGNIFICANT RADIOGRAPHIC FINDING IN THE CHEST. Assessment & Plan - Diagnosis (1) Abdominal wall abscess Is this a current diagnosis for this admission?: Yes Plan: Patient is status post I&D, continue intravenous vancomycin, Patient stated that the last time he had I&D done of the abscess in his right upper extremities, he required a vacuum pump, he wants to know if he would require a vacuum pump again (2) T2DM (type 2 diabetes mellitus) Qualifiers: Diabetes mellitus skilled nursing insulin use: without intermodal dispatcher use Diabetes mellitus complication status: with neurologic complications Diabetes mellitus complication detail: with polyneuropathy Qualified Code(s): E11.42 - Type 2 diabetes mellitus with diabetic polyneuropathy Is this a current diagnosis for this admission?: Yes Plan: Poorly controlled diabetes, presently requiring insulin coverage
[2018-11-15] MEDS ORDERED: HYDROXYZINE HCL 10 MG TABLET PO PRN (14:50)
[2018-11-15] MEDS: VANCOMYCIN HCL 1,250 MG in DEXTROSE 5%-WATER 250 ML IV SCH ×2 (16:13→22:00)
[2018-11-15] MEDS: METFORMIN HCL 500 MG TABLET PO SCH (16:26)
[2018-11-15] MEDS: NORMAL SALINE 1000 ML 1,000 ML IV PRN (20:36)
[2018-11-15] MEDS: SIMVASTATIN 40 MG TABLET PO SCH (21:59)
[2018-11-16 04:03] LABS: ABSOLUTE BASOPHILS # (AUTO) 0.1 10^3/uL (0.0-0.2); ABSOLUTE EOSINOPHILS # (AUTO) 0.4 10^3/uL (0.0-0.6); ABSOLUTE LYMPHOCYTES (AUTO) 1.5 10^3/uL (0.5-4.7); ABSOLUTE NEUT (AUTO) 5.3 10^3/uL (1.7-8.2); BASOPHILS % (AUTO) 0.8 % (0-2); EOSINOPHILS % (AUTO) 4.9 % (0-6); HEMATOCRIT 37.5 % (37.9-51.0); LYMPHOCYTES % (AUTO) 18.2 % (13-45); MEAN CORPUSCULAR HEMOGLOBIN 28.6 pg (27.0-33.4); MEAN CORPUSCULAR HGB CONC 34.7 g/dL (32.0-36.0); MEAN CORPUSCULAR VOLUME 82 fl (80-97); MONOCYTES % (AUTO) 12.2 % (3-13); PLATELET COUNT 262 10^3/uL (150-450); RED BLOOD COUNT 4.56 10^6/uL (4.35-5.55); RED CELL DISTRIBUTION WIDTH 13.7 % (11.5-14.0); SEGMENTED NEUTROPHILS % (AUTO) 63.9 % (42-78); TOTAL CELLS COUNTED % (AUTO) 100 %; WHITE BLOOD COUNT 8.3 10^3/uL (4.0-10.5)
[2018-11-16 04:16] LABS: ALANINE AMINOTRANSFERASE 21 U/L (21-72); ALBUMIN 3.4 g/dL (3.5-5.0); ALKALINE PHOSPHATASE 57 U/L (38-126); ANION GAP 13 (5-19); ASPARTATE AMINO TRANSFERASE 16 U/L (17-59); BILIRUBIN,DIRECT 0.3 mg/dL (0.0-0.4); BILIRUBIN,TOTAL 0.6 mg/dL (0.2-1.3); BLOOD UREA NITROGEN 14 mg/dL (7-20); CALCIUM 9.6 mg/dL (8.4-10.2); CARBON DIOXIDE 22 mmol/L (22-30); CHLORIDE 99 mmol/L (98-107); GLUCOSE 114 mg/dL (75-110); POTASSIUM 4.1 mmol/L (3.6-5.0); SODIUM 133.9 mmol/L (137-145); TOTAL PROTEIN 6.2 g/dL (6.3-8.2)
[2018-11-16] MEDS: VANCOMYCIN HCL 1,250 MG in DEXTROSE 5%-WATER 250 ML IV SCH ×3 (05:10→22:37)
[2018-11-16] MEDS: INSULIN LISPRO 100 UNIT/ML 3 ML VIAL SUBCUT SCH ×3 (08:46→17:25)
[2018-11-16] MEDS: METFORMIN HCL 500 MG TABLET PO SCH ×2 (08:47→17:26)
[2018-11-16] MEDS: TRAMADOL HCL 50 MG TABLET PO PRN ×2 (08:47→17:25)
[2018-11-16] MEDS: LOSARTAN POTASSIUM 50 MG TABLET PO SCH (09:54)
[2018-11-16] MEDS: GLIMEPIRIDE 4 MG TABLET PO SCH (09:54)
[2018-11-16] MEDS: ASPIRIN 81 MG TABLET, ENT COATED PO SCH (09:54)
[2018-11-16] MEDS: HYDROCHLOROTHIAZIDE 25 MG TABLET PO SCH (09:54)
[2018-11-16] MEDS: ENOXAPARIN SODIUM INJ 40 MG/0.4 ML DISP.SYRIN SUBCUT SCH (09:55)
--- NOTE | 2018-11-16 11:23 | PDOC PROGRESS REPORT ---
Subjective Progress Note for:: 11/16/18 Subjective:: Patient states he is feeling better; expressed concerns about being discharged home even with home health as he has unsuitable living conditions. Reason For Visit: LARGE ABSCESS IN THE SUPRAPUBIC AREA, H/O MRSA Physical Exam Vital Signs: Temp Pulse Resp BP Pulse Ox 98.7 F 87 16 141/76 H 97 11/16/18 08:00 11/16/18 08:00 11/16/18 08:00 11/16/18 08:00 11/16/18 08:00 Intake & Output 11/15/18 11/16/18 11/17/18 06:59 06:59 06:59 Intake Total 1680 550 250 Output Total 720 1900 Balance 960 -1350 250 Weight 98.9 kg 94.8 kg 94.8 kg General appearance: PRESENT: no acute distress GI/Abdominal exam: PRESENT: other - VAC in place; mild erythema under the clear seal. Abdomen is benign. Results Laboratory Results: 11/16/18 03:55 11/16/18 03:55 11/16/18 11/16/18 03:55 03:55 WBC 8.3 RBC 4.56 Hgb 13.0 L Hct 37.5 L MCV 82 MCH 28.6 MCHC 34.7 RDW 13.7 Plt Count 262 Seg Neutrophils % 63.9 Lymphocytes % 18.2 Monocytes % 12.2 Eosinophils % 4.9 Basophils % 0.8 Absolute Neutrophils 5.3 Absolute Lymphocytes 1.5 Absolute Monocytes 1.0 Absolute Eosinophils 0.4 Absolute Basophils 0.1 Sodium 133.9 L Potassium 4.1 Chloride 99 Carbon Dioxide 22 Anion Gap 13 BUN 14 Creatinine 0.76 Est GFR ( Amer) > 60 Est GFR (Non-Af Amer) > 60 Glucose 114 H Calcium 9.6 Total Bilirubin 0.6 AST 16 L ALT 21 Alkaline Phosphatase 57 Total Protein 6.2 L Albumin 3.4 L 11/14/18 16:07 Suprapubic Wound Gram Stain - Final 11/14/18 16:07 Suprapubic Wound Wound Culture - Final Staphylococcus Aureus No Anaerobic Organisms Impressions: Chest X-Ray 11/14/18 11:34 IMPRESSION: NO SIGNIFICANT RADIOGRAPHIC FINDING IN THE CHEST. Assessment & Plan - Diagnosis (1) Abdominal wall abscess Is this a current diagnosis for this admission?: Yes Plan: Impression: 1 day status post abdominal wall debridement, VAC placement, with adequate sepsis control; patient growing non-MRSA staph aureus pansensitive. Recommendations: 1. Can likely switch to cognitive gram-positive antimicrobial, continue intravenously. 2. We will get discharge planning involved; patient will likely be candidate for switch from wound VAC to dressing changes in 24-48 hours
[2018-11-16] MEDS ORDERED: HYDROXYZINE PAMOATE 25 MG CAPSULE PO PRN (13:30)
[2018-11-16] MEDS: NORMAL SALINE 1000 ML 1,000 ML IV PRN (16:04)
--- NOTE | 2018-11-16 17:38 | PDOC PROGRESS REPORT ---
Subjective Progress Note for:: 11/16/18 Subjective:: Patient expressed concern regarding his discharge home due to unacceptable living condition to permit use of wound vac at home. He is requesting transfer to facility that can care for his wound while he is recuperating. He denied any chest pain or difficulty with breathing. No fever or chills. Remain on IV Vancomycin coverage. Reason For Visit: LARGE ABSCESS IN THE SUPRAPUBIC AREA, H/O MRSA Physical Exam Vital Signs: Temp Pulse Resp BP Pulse Ox 98.7 F 87 16 141/76 H 97 11/16/18 08:00 11/16/18 08:00 11/16/18 08:00 11/16/18 08:00 11/16/18 08:00 Intake & Output 11/15/18 11/16/18 11/17/18 06:59 06:59 06:59 Intake Total 1680 550 250 Output Total 720 1900 Balance 960 -1350 250 Weight 98.9 kg 94.8 kg General appearance: PRESENT: no acute distress Head exam: PRESENT: atraumatic, normocephalic Eye exam: PRESENT: conjunctiva pink, EOMI, PERRLA. ABSENT: scleral icterus Ear exam: PRESENT: normal external ear exam Mouth exam: PRESENT: moist Respiratory exam: PRESENT: clear to auscultation eduardo Cardiovascular exam: PRESENT: RRR. ABSENT: diastolic murmur, rubs, systolic murmur Vascular exam: ABSENT: pallor GI/Abdominal exam: PRESENT: normal bowel sounds, soft. ABSENT: distended, guarding, mass, organolmegaly, rebound, tenderness Extremities exam: ABSENT: pedal edema Musculoskeletal exam: ABSENT: tenderness Neurological exam: PRESENT: alert, awake, oriented to person, oriented to place, oriented to time, oriented to situation, CN II-XII grossly intact. ABSENT: motor sensory deficit Psychiatric exam: PRESENT: appropriate affect, normal mood. ABSENT: homicidal ideation, suicidal ideation Skin exam: PRESENT: dry, warm, other - suprapubic regin I&D wound fairly clean with wound vac device attached. Resolving surrounding erythema. No significant tenderness to palpation. Results Laboratory Results: 11/16/18 03:55 11/16/18 03:55 11/16/18 11/16/18 03:55 03:55 WBC 8.3 RBC 4.56 Hgb 13.0 L Hct 37.5 L MCV 82 MCH 28.6 MCHC 34.7 RDW 13.7 Plt Count 262 Seg Neutrophils % 63.9 Lymphocytes % 18.2 Monocytes % 12.2 Eosinophils % 4.9 Basophils % 0.8 Absolute Neutrophils 5.3 Absolute Lymphocytes 1.5 Absolute Monocytes 1.0 Absolute Eosinophils 0.4 Absolute Basophils 0.1 Sodium 133.9 L Potassium 4.1 Chloride 99 Carbon Dioxide 22 Anion Gap 13 BUN 14 Creatinine 0.76 Est GFR ( Amer) > 60 Est GFR (Non-Af Amer) > 60 Glucose 114 H Calcium 9.6 Total Bilirubin 0.6 AST 16 L ALT 21 Alkaline Phosphatase 57 Total Protein 6.2 L Albumin 3.4 L Impressions: Chest X-Ray 11/14/18 11:34 IMPRESSION: NO SIGNIFICANT RADIOGRAPHIC FINDING IN THE CHEST. Assessment & Plan - Diagnosis (1) Abdominal wall abscess Is this a current diagnosis for this admission?: Yes Plan: Post I&D drainage with need for wound vac therapy and possible need for further wound management with SOCIAL SCIENCE RESEARCH ASSISTANT or SNF placement. Continue IV Vancomycin coverage pend ing wound and blood culture report. I will request discharge/social worker health services input on discharge planning. (2) T2DM (type 2 diabetes mellitus) Qualifiers: Diabetes mellitus senior living insulin use: without vermin exterminator use Diabetes mellitus complication status: with neurologic complications Diabetes mellitus complication detail: with polyneuropathy Qualified Code(s): E11.42 - Type 2 diabetes mellitus with diabetic polyneuropathy Is this a current diagnosis for this admission?: Yes Plan: Continue current medication management. (3) HTN (hypertension) Qualifiers: Hypertension type: essential hypertension Qualified Code(s): I10 - Essential (primary) hypertension Is this a current diagnosis for this admission?: Yes Plan: Continue current medication management. (4) HLD (hyperlipidemia) Qualifiers: Hyperlipidemia type: pure hypercholesterolemia Qualified Code(s): E78.00 - Pure hypercholesterolemia, unspecified; E78.0 - Pure hypercholesterolemia Is this a current diagnosis for this admission?: Yes Plan: Continue current medication management. - Time Time Spent with patient: 25-34 minutes Medications reviewed and adjusted accordingly: Yes Anticipated discharge: Home with Homehealth, SNF Within: Other - Inpatient Certification Based on my medical assessment, after consideration of the patient's comorbidities, presenting symptoms, or acuity I expect that the services needed warrant INPATIENT care.: Yes I certify that my determination is in accordance with my understanding of Medicare's requirements for reasonable and necessary INPATIENT services [42 CFR 412.3e].: Yes Medical Necessity: Significant Comorbidiites Make Outpatient Treatment Too Risky, Need Close Monitoring Due to Risk of Patient Decompensation, Need for IV Antibiotics, Need for Surgery, Risk of Complication if Not Cared For in Hospital, Risk of Diagnosis Which Will Require Inpatient Eval/Care/Monitoring Post Hospital Care: D/C Medical Physicist Documentation, D/C or Transfer Summary - Plan Summary Plan Summary: Continue current medication management. F/up on culture reports. D/C corporate planner to assess for placement.
[2018-11-16 22:30] LABS: VANCOMYCIN,TROUGH 13.7 ug/mL (5.0-20.0)
[2018-11-16] MEDS: SIMVASTATIN 40 MG TABLET PO SCH (22:37)
[2018-11-17] MEDS: INSULIN LISPRO 100 UNIT/ML 3 ML VIAL SUBCUT SCH ×5 (00:54→21:53)
[2018-11-17] MEDS: VANCOMYCIN HCL 1,250 MG in DEXTROSE 5%-WATER 250 ML IV SCH (06:45)
[2018-11-17] MEDS: NORMAL SALINE 1000 ML 1,000 ML IV PRN ×2 (06:52→21:58)
[2018-11-17 07:29] LABS: ABSOLUTE BASOPHILS # (AUTO) 0.1 10^3/uL (0.0-0.2); ABSOLUTE EOSINOPHILS # (AUTO) 0.5 10^3/uL (0.0-0.6); ABSOLUTE LYMPHOCYTES (AUTO) 1.5 10^3/uL (0.5-4.7); ABSOLUTE MONOCYTES (AUTO) 0.9 10^3/uL (0.1-1.4); ABSOLUTE NEUT (AUTO) 5.6 10^3/uL (1.7-8.2); BASOPHILS % (AUTO) 0.7 % (0-2); EOSINOPHILS % (AUTO) 5.8 % (0-6); HEMATOCRIT 39.4 % (37.9-51.0); HEMOGLOBIN 13.6 g/dL (13.5-17.0); LYMPHOCYTES % (AUTO) 17.2 % (13-45); MEAN CORPUSCULAR HEMOGLOBIN 28.3 pg (27.0-33.4); MEAN CORPUSCULAR HGB CONC 34.5 g/dL (32.0-36.0); MEAN CORPUSCULAR VOLUME 82 fl (80-97); MONOCYTES % (AUTO) 10.7 % (3-13); PLATELET COUNT 294 10^3/uL (150-450); RED BLOOD COUNT 4.81 10^6/uL (4.35-5.55); RED CELL DISTRIBUTION WIDTH 13.7 % (11.5-14.0); SEGMENTED NEUTROPHILS % (AUTO) 65.6 % (42-78); TOTAL CELLS COUNTED % (AUTO) 100 %; WHITE BLOOD COUNT 8.6 10^3/uL (4.0-10.5)
[2018-11-17 07:58] LABS: ALANINE AMINOTRANSFERASE 20 U/L (21-72); ALBUMIN 3.5 g/dL (3.5-5.0); ALKALINE PHOSPHATASE 60 U/L (38-126); ANION GAP 14 (5-19); ASPARTATE AMINO TRANSFERASE 17 U/L (17-59); BILIRUBIN,DIRECT 0.3 mg/dL (0.0-0.4); BILIRUBIN,TOTAL 0.5 mg/dL (0.2-1.3); BLOOD UREA NITROGEN 20 mg/dL (7-20); CARBON DIOXIDE 22 mmol/L (22-30); CHLORIDE 98 mmol/L (98-107); GLUCOSE 127 mg/dL (75-110); POTASSIUM 4.1 mmol/L (3.6-5.0); TOTAL PROTEIN 6.8 g/dL (6.3-8.2)
--- NOTE | 2018-11-17 09:16 | PDOC PROGRESS REPORT ---
Subjective Progress Note for:: 11/17/18 Subjective:: Mild pain Reason For Visit: LARGE ABSCESS IN THE SUPRAPUBIC AREA, H/O MRSA Physical Exam Vital Signs: Temp Pulse Resp BP Pulse Ox 97.8 F 89 16 145/68 H 98 11/17/18 07:27 11/17/18 07:27 11/17/18 07:27 11/17/18 07:27 11/17/18 07:27 Intake & Output 11/16/18 11/17/18 11/18/18 06:59 06:59 06:59 Intake Total 550 2750 Output Total 1900 2050 Balance -1350 700 Weight 94.8 kg 94.63 kg GI/Abdominal exam: PRESENT: other - Suprapubic region with wound VAC in place. Very subtle surrounding erythema. Results Laboratory Results: 11/17/18 06:58 11/17/18 06:58 11/17/18 11/17/18 06:58 06:58 WBC 8.6 RBC 4.81 Hgb 13.6 Hct 39.4 MCV 82 MCH 28.3 MCHC 34.5 RDW 13.7 Plt Count 294 Seg Neutrophils % 65.6 Lymphocytes % 17.2 Monocytes % 10.7 Eosinophils % 5.8 Basophils % 0.7 Absolute Neutrophils 5.6 Absolute Lymphocytes 1.5 Absolute Monocytes 0.9 Absolute Eosinophils 0.5 Absolute Basophils 0.1 Sodium 134.0 L Potassium 4.1 Chloride 98 Carbon Dioxide 22 Anion Gap 14 BUN 20 Creatinine 0.84 Est GFR ( Amer) > 60 Est GFR (Non-Af Amer) > 60 Glucose 127 H Calcium 10.0 Total Bilirubin 0.5 AST 17 ALT 20 L Alkaline Phosphatase 60 Total Protein 6.8 Albumin 3.5 11/14/18 16:07 Suprapubic Wound Gram Stain - Final 11/14/18 16:07 Suprapubic Wound Wound Culture - Final Staphylococcus Aureus No Anaerobic Organisms Impressions: Chest X-Ray 11/14/18 11:34 IMPRESSION: NO SIGNIFICANT RADIOGRAPHIC FINDING IN THE CHEST. Assessment & Plan - Diagnosis (1) Abdominal wall abscess Is this a current diagnosis for this admission?: Yes Plan: Looks good. Wound VAC was changed yesterday. Continue wound VAC. Cultures grew out pansensitive staph and therefore vancomycin will be DC'd and Ancef started. Patient could be discharged in the next couple of days on p.o. Keflex and either wound VAC at home or wet-to-dry dressings at home depending on social situation.
[2018-11-17] MEDS: ENOXAPARIN SODIUM INJ 40 MG/0.4 ML DISP.SYRIN SUBCUT SCH (09:51)
[2018-11-17] MEDS: HYDROCHLOROTHIAZIDE 25 MG TABLET PO SCH (09:52)
[2018-11-17] MEDS: LOSARTAN POTASSIUM 50 MG TABLET PO SCH (09:52)
[2018-11-17] MEDS: GLIMEPIRIDE 4 MG TABLET PO SCH (09:53)
[2018-11-17] MEDS: ASPIRIN 81 MG TABLET, ENT COATED PO SCH (09:53)
[2018-11-17] MEDS: METFORMIN HCL 500 MG TABLET PO SCH ×2 (09:53→17:38)
[2018-11-17] MEDS: CEFAZOLIN 1 GM/D5W RTU 1 GM/50 ML RTUPB IV SCH ×2 (13:02→17:38)
--- NOTE | 2018-11-17 20:09 | PDOC PROGRESS REPORT ---
Subjective Progress Note for:: 11/17/18 Subjective:: Denied any fever or chills. No chest pain or difficulty with breathing. Tolerating oral feeding with satisfactory bowel movement. Reason For Visit: LARGE ABSCESS IN THE SUPRAPUBIC AREA, H/O MRSA Physical Exam Vital Signs: Temp Pulse Resp BP Pulse Ox 97.8 F 88 15 122/72 98 11/17/18 15:19 11/17/18 15:19 11/17/18 15:19 11/17/18 15:19 11/17/18 15:19 Intake & Output 11/16/18 11/17/18 11/18/18 06:59 06:59 06:59 Intake Total 550 2750 1250 Output Total 1900 2050 1150 Balance -1350 700 100 Weight 94.8 kg 94.63 kg Physical Exam: General appearance: PRESENT: no acute distress Head exam: PRESENT: atraumatic, normocephalic Eye exam: PRESENT: conjunctiva pink. ABSENT: pallor, scleral icterus Ear exam: PRESENT: normal external ear exam Mouth exam: PRESENT: moist Respiratory exam: PRESENT: clear to auscultation eduardo Cardiovascular exam: PRESENT: RRR. ABSENT: diastolic murmur, rubs, systolic murmur GI/Abdominal exam: PRESENT: normal bowel sounds, soft. ABSENT: distended, guarding, mass, organomegaly, rebound, tenderness Extremities exam: ABSENT: pedal edema Musculoskeletal exam: ABSENT: tenderness Neurological exam: PRESENT: alert, awake, oriented to person, oriented to place, oriented to time, oriented to situation, CN II-XII grossly intact. ABSENT: motor sensory deficit Psychiatric exam: PRESENT: appropriate affect, normal mood. ABSENT: homicidal ideation, suicidal ideation Skin exam: PRESENT: dry, warm, other - suprapubic region I&D wound fairly clean with wound vac device attached. Resolving surrounding erythema. No significant tenderness to palpation. Results Laboratory Results: 11/17/18 06:58 11/17/18 06:58 11/17/18 11/17/18 06:58 06:58 WBC 8.6 RBC 4.81 Hgb 13.6 Hct 39.4 MCV 82 MCH 28.3 MCHC 34.5 RDW 13.7 Plt Count 294 Seg Neutrophils % 65.6 Lymphocytes % 17.2 Monocytes % 10.7 Eosinophils % 5.8 Basophils % 0.7 Absolute Neutrophils 5.6 Absolute Lymphocytes 1.5 Absolute Monocytes 0.9 Absolute Eosinophils 0.5 Absolute Basophils 0.1 Sodium 134.0 L Potassium 4.1 Chloride 98 Carbon Dioxide 22 Anion Gap 14 BUN 20 Creatinine 0.84 Est GFR ( Amer) > 60 Est GFR (Non-Af Amer) > 60 Glucose 127 H Calcium 10.0 Total Bilirubin 0.5 AST 17 ALT 20 L Alkaline Phosphatase 60 Total Protein 6.8 Albumin 3.5 Impressions: Chest X-Ray 11/14/18 11:34 IMPRESSION: NO SIGNIFICANT RADIOGRAPHIC FINDING IN THE CHEST. Assessment & Plan - Diagnosis (1) Abdominal wall abscess Is this a current diagnosis for this admission?: Yes (2) T2DM (type 2 diabetes mellitus) Qualifiers: Diabetes mellitus ferry terminal supervisor insulin use: without jail use Diabetes mellitus complication status: with neurologic complications Diabetes mellitus complication detail: with polyneuropathy Qualified Code(s): E11.42 - Type 2 diabetes mellitus with diabetic polyneuropathy Is this a current diagnosis for this admission?: Yes (3) HTN (hypertension) Qualifiers: Hypertension type: essential hypertension Qualified Code(s): I10 - Essential (primary) hypertension Is this a current diagnosis for this admission?: Yes (4) HLD (hyperlipidemia) Qualifiers: Hyperlipidemia type: pure hypercholesterolemia Qualified Code(s): E78.00 - Pure hypercholesterolemia, unspecified; E78.0 - Pure hypercholesterolemia Is this a current diagnosis for this admission?: Yes - Time Time Spent with patient: 25-34 minutes Medications reviewed and adjusted accordingly: Yes Anticipated discharge: Home with Homehealth, SNF Within: Other - Inpatient Certification Based on my medical assessment, after consideration of the patient's comorbidities, presenting symptoms, or acuity I expect that the services needed warrant INPATIENT care.: Yes I certify that my determination is in accordance with my understanding of Medicare's requirements for reasonable and necessary INPATIENT services [42 CFR 412.3e].: Yes Medical Necessity: Significant Comorbidiites Make Outpatient Treatment Too Risky, Need Close Monitoring Due to Risk of Patient Decompensation, Need for IV Antibiotics, Risk of Complication if Not Cared For in Hospital, Risk of Diagnosis Which Will Require Inpatient Eval/Care/Monitoring Post Hospital Care: D/C Automat Car Attendant Documentation - Plan Summary Plan Summary: Continue on IV Cefazolin coverage. Follow up on senior production planner input with disposition.
[2018-11-17] MEDS: SIMVASTATIN 40 MG TABLET PO SCH (21:57)
[2018-11-18] MEDS: CEFAZOLIN 1 GM/D5W RTU 1 GM/50 ML RTUPB IV SCH ×5 (00:20→23:17)
[2018-11-18] MEDS: INSULIN LISPRO 100 UNIT/ML 3 ML VIAL SUBCUT SCH ×4 (08:00→21:35)
[2018-11-18] MEDS: GLIMEPIRIDE 4 MG TABLET PO SCH (08:54)
[2018-11-18] MEDS: METFORMIN HCL 500 MG TABLET PO SCH ×2 (08:54→16:33)
[2018-11-18] MEDS: HYDROCHLOROTHIAZIDE 25 MG TABLET PO SCH (09:12)
[2018-11-18] MEDS: ASPIRIN 81 MG TABLET, ENT COATED PO SCH (09:12)
[2018-11-18] MEDS: LOSARTAN POTASSIUM 50 MG TABLET PO SCH (09:12)
[2018-11-18] MEDS: ENOXAPARIN SODIUM INJ 40 MG/0.4 ML DISP.SYRIN SUBCUT SCH (09:13)
[2018-11-18] MEDS: TRAMADOL HCL 50 MG TABLET PO PRN ×2 (16:26→23:16)
--- NOTE | 2018-11-18 16:44 | Operative Report ---
Nonrecallable Operative Report DATE OF SURGERY: 11/18/18 PREOPERATIVE DIAGNOSIS: Large suprapubic wound, 8 cm x 2 cm x 1 cm. POSTOPERATIVE DIAGNOSIS: Same as above OPERATION: Removal and reapplication of negative pressure wound management system, 8 cm x 2 cm x 1 cm. SURGEON: JOHANNE HAIRSTON ANESTHESIA: Other - none TISSUE REMOVED OR ALTERED: none COMPLICATIONS: None apparent ESTIMATED BLOOD LOSS: Minimal PROCEDURE: Procedure in detail: After informed consent was obtained from the patient, the old wound VAC dressing was removed. There was healthy, bleeding tissue in the base of the wound. A small wound VAC sponge was cut to fit the abdominal wound. The wound measured 8 cm wide by 2 cm long by 1 cm deep. There was abdominal wall fascia exposed. The occlusive dressing was placed, and suction was applied. There was no leak from the wound VAC dressing. At this time the procedure was concluded. All sponge, instrument, and needle counts were correct. Condition: Stable.
--- NOTE | 2018-11-18 16:47 | PDOC PROGRESS REPORT ---
Subjective Progress Note for:: 11/18/18 Reason For Visit: LARGE ABSCESS IN THE SUPRAPUBIC AREA, H/O MRSA Physical Exam Vital Signs: Temp Pulse Resp BP Pulse Ox 97.8 F 90 16 130/72 H 98 11/18/18 14:40 11/18/18 14:40 11/18/18 14:40 11/18/18 14:40 11/18/18 14:40 Intake & Output 11/17/18 11/18/18 11/19/18 06:59 06:59 06:59 Intake Total 2750 2500 770 Output Total 2050 2150 1130 Balance 700 350 -360 Weight 94.63 kg 95.6 kg 95.6 kg Results Laboratory Results: 11/17/18 06:58 11/17/18 06:58 Impressions: Chest X-Ray 11/14/18 11:34 IMPRESSION: NO SIGNIFICANT RADIOGRAPHIC FINDING IN THE CHEST. Assessment & Plan - Plan Summary Plan Summary: This is a 63-year-old male status post incision and drainage of a large abdominal wall abscess. His wound measures 8 cm x 2 cm x 1 cm. The base of the wound is healthy. There is no active purulence. There is fascia exposed. The patient is requesting wound VAC therapy. In my opinion, wound VAC versus damp dressing changes with packing are equivalent therapies (however the wound VAC will expedite healing threefold). I recommend home health for dressing changes and/or wound VAC management. The patient is requesting placement in an inpatient facility. I would defer this to the social media marketing analyst. The patient may follow-up with the wound care clinic (or [facility]) for continued wound management. I will see the patient again on an as-needed basis. Please renotify with any questions or concerns. Wound VAC should be changed at least every third day.
[2018-11-18] MEDS: NORMAL SALINE 1000 ML 1,000 ML IV PRN (17:37)
--- NOTE | 2018-11-18 18:35 | PDOC PROGRESS REPORT ---
Subjective Progress Note for:: 11/18/18 Subjective:: Patient denied any fever or chills. no nausea, vomiting or abdominal pain. No chest pain or difficulty with breathing. Reason For Visit: LARGE ABSCESS IN THE SUPRAPUBIC AREA, H/O MRSA Physical Exam Vital Signs: Temp Pulse Resp BP Pulse Ox 97.9 F 91 16 117/79 98 11/18/18 07:51 11/18/18 07:51 11/18/18 07:51 11/18/18 07:51 11/18/18 07:51 Intake & Output 11/17/18 11/18/18 11/19/18 06:59 06:59 06:59 Intake Total 2750 2500 Output Total 2050 2150 Balance 700 350 Weight 94.63 kg 95.6 kg Physical Exam: General appearance: PRESENT: no acute distress Head exam: PRESENT: atraumatic, normocephalic Eye exam: PRESENT: conjunctiva pink. ABSENT: pallor, scleral icterus Ear exam: PRESENT: normal external ear exam Mouth exam: PRESENT: moist Respiratory exam: PRESENT: clear to auscultation eduardo Cardiovascular exam: PRESENT: RRR. ABSENT: diastolic murmur, rubs, systolic murmur GI/Abdominal exam: PRESENT: normal bowel sounds, soft. ABSENT: distended, guarding, mass, organomegaly, rebound, tenderness Extremities exam: ABSENT: pedal edema Musculoskeletal exam: ABSENT: tenderness Neurological exam: PRESENT: alert, awake, oriented to person, oriented to place, oriented to time, oriented to situation, CN II-XII grossly intact. ABSENT: motor sensory deficit Psychiatric exam: PRESENT: appropriate affect, normal mood. ABSENT: homicidal ideation, suicidal ideation Skin exam: PRESENT: dry, warm, other - suprapubic region I&D wound fairly clean with wound vac device attached. Resolving surrounding erythema. No significant tenderness to palpation. Results Laboratory Results: 11/17/18 06:58 11/17/18 06:58 Impressions: Chest X-Ray 11/14/18 11:34 IMPRESSION: NO SIGNIFICANT RADIOGRAPHIC FINDING IN THE CHEST. Assessment & Plan - Diagnosis (1) Abdominal wall abscess Is this a current diagnosis for this admission?: Yes (2) T2DM (type 2 diabetes mellitus) Qualifiers: Diabetes mellitus shelter insulin use: without shelter use Diabetes mellitus complication status: with neurologic complications Diabetes mellitus complication detail: with polyneuropathy Qualified Code(s): E11.42 - Type 2 diabetes mellitus with diabetic polyneuropathy Is this a current diagnosis for this admission?: Yes (3) HTN (hypertension) Qualifiers: Hypertension type: essential hypertension Qualified Code(s): I10 - Essential (primary) hypertension Is this a current diagnosis for this admission?: Yes (4) HLD (hyperlipidemia) Qualifiers: Hyperlipidemia type: pure hypercholesterolemia Qualified Code(s): E78.00 - Pure hypercholesterolemia, unspecified; E78.0 - Pure hypercholesterolemia Is this a current diagnosis for this admission?: Yes - Time Time Spent with patient: 25-34 minutes Medications reviewed and adjusted accordingly: Yes Anticipated discharge: SNF Within: Other - Inpatient Certification Based on my medical assessment, after consideration of the patient's rashaun rbidities, presenting symptoms, or acuity I expect that the services needed warrant INPATIENT care.: Yes I certify that my determination is in accordance with my understanding of Medicare's requirements for reasonable and necessary INPATIENT services [42 CFR 412.3e].: Yes Medical Necessity: Significant Comorbidiites Make Outpatient Treatment Too Risky, Need Close Monitoring Due to Risk of Patient Decompensation, Need For IV Fluids, Need for IV Antibiotics, Need for Surgery, Risk of Complication if Not Cared For in Hospital, Risk of Diagnosis Which Will Require Inpatient Eval/Care/Monitoring Post Hospital Care: D/C Bridge Mechanic Documentation - Plan Summary Plan Summary: Continue IV Cefazolin coverage. Follow up with surgical team regarding wound management. Maintain on all other current medication management.
[2018-11-18] MEDS: SIMVASTATIN 40 MG TABLET PO SCH (21:35)
[2018-11-19] MEDS: CEFAZOLIN 1 GM/D5W RTU 1 GM/50 ML RTUPB IV SCH ×4 (05:15→23:13)
[2018-11-19] MEDS: METFORMIN HCL 500 MG TABLET PO SCH ×2 (08:10→17:32)
[2018-11-19] MEDS: GLIMEPIRIDE 4 MG TABLET PO SCH (08:10)
[2018-11-19] MEDS: INSULIN LISPRO 100 UNIT/ML 3 ML VIAL SUBCUT SCH ×4 (08:12→21:51)
[2018-11-19] MEDS: NORMAL SALINE 1000 ML 1,000 ML IV PRN (09:43)
[2018-11-19] MEDS: ASPIRIN 81 MG TABLET, ENT COATED PO SCH (10:54)
[2018-11-19] MEDS: ENOXAPARIN SODIUM INJ 40 MG/0.4 ML DISP.SYRIN SUBCUT SCH (10:54)
[2018-11-19] MEDS: LOSARTAN POTASSIUM 50 MG TABLET PO SCH (10:54)
[2018-11-19] MEDS: HYDROCHLOROTHIAZIDE 25 MG TABLET PO SCH (10:55)
--- NOTE | 2018-11-19 17:54 | PDOC PROGRESS REPORT ---
Subjective Progress Note for:: 11/19/18 Subjective:: Patient is still awaiting SNF placement for wound management. D/C personal financial planner input appreciated. No fever or chills. no nausea, vomiting or abdominal pain. No chest pain or difficulty with breathing. Reason For Visit: LARGE ABSCESS IN THE SUPRAPUBIC AREA, H/O MRSA Physical Exam Vital Signs: Temp Pulse Resp BP Pulse Ox 97.3 F 95 15 114/65 98 11/19/18 15:08 11/19/18 15:08 11/19/18 15:08 11/19/18 15:08 11/19/18 15:08 Intake & Output 11/18/18 11/19/18 11/20/18 06:59 06:59 06:59 Intake Total 2500 1920 1680 Output Total 2150 1455 600 Balance 576 017 9546 Weight 95.6 kg 93.9 kg Physical Exam: General appearance: PRESENT: no acute distress Head exam: PRESENT: atraumatic, normocephalic Eye exam: PRESENT: conjunctiva pink. ABSENT: pallor, scleral icterus Ear exam: PRESENT: normal external ear exam Mouth exam: PRESENT: moist Respiratory exam: PRESENT: clear to auscultation eduardo Cardiovascular exam: PRESENT: RRR. ABSENT: diastolic murmur, rubs, systolic murmur GI/Abdominal exam: PRESENT: normal bowel sounds, soft. ABSENT: distended, guarding, mass, organomegaly, rebound, tenderness Extremities exam: ABSENT: pedal edema Musculoskeletal exam: ABSENT: tenderness Neurological exam: PRESENT: alert, awake, oriented to person, oriented to place, oriented to time, oriented to situation, CN II-XII grossly intact. ABSENT: motor sensory deficit Psychiatric exam: PRESENT: appropriate affect, normal mood. ABSENT: homicidal ideation, suicidal ideation Skin exam: PRESENT: dry, warm, other - suprapubic region I&D wound with wound vac device attached. Resolving surrounding erythema. No significant tenderness to palpation. Results Laboratory Results: 11/17/18 06:58 11/17/18 06:58 11/14/18 13:48 Blood Blood Culture - Final NO GROWTH IN 5 DAYS 11/14/18 11:52 Blood Blood Culture - Final NO GROWTH IN 5 DAYS Impressions: Chest X-Ray 11/14/18 11:34 IMPRESSION: NO SIGNIFICANT RADIOGRAPHIC FINDING IN THE CHEST. Assessment & Plan - Diagnosis (1) Abdominal wall abscess Is this a current diagnosis for this admission?: Yes (2) T2DM (type 2 diabetes mellitus) Qualifiers: Diabetes mellitus termite exterminator insulin use: without termite exterminator use Diabetes mellitus complication status: with neurologic complications Diabetes mellitus complication detail: with polyneuropathy Qualified Code(s): E11.42 - Type 2 diabetes mellitus with diabetic polyneuropathy Is this a current diagnosis for this admission?: Yes (3) HTN (hypertension) Qualifiers: Hypertension type: essential hypertension Qualified Code(s): I10 - Essential (primary) hypertension Is this a current diagnosis for this admission?: Yes (4) HLD (hyperlipidemia) Qualifiers: Hyperlipidemia type: pure hypercholesterolemia Qualified Code(s): E78.00 - Pure hypercholesterolemia, unspecified; E78.0 - Pure hypercholesterolemia Is this a current diagnosis for this admission?: Yes - Time Time Spent with patient: 25-34 minutes Medications reviewed and adjusted accordingly: Yes Anticipated discharge: SNF Within: Other - Inpatient Certification Based on my medical assessment, after consideration of the patient's comorbidities, presenting symptoms, or acuity I expect that the services needed warrant INPATIENT care.: Yes I certify that my determination is in accordance with my understanding of Medicare's requirements for reasonable and necessary INPATIENT services [42 CFR 412.3e].: Yes Medical Necessity: Significant Comorbidiites Make Outpatient Treatment Too Risky, Need Close Monitoring Due to Risk of Patient Decompensation, Need For IV Fluids, Need for IV Antibiotics, Risk of Complication if Not Cared For in Hospital, Risk of Diagnosis Which Will Require Inpatient Eval/Care/Monitoring Post Hospital Care: D/C or Transfer Summary - Plan Summary Plan Summary: Continue current mediation management. Obtain CBC and BMP in AM. Follow up on disposition effort tomorrow.
[2018-11-19] MEDS: SIMVASTATIN 40 MG TABLET PO SCH (21:52)
[2018-11-20] MEDS: CEFAZOLIN 1 GM/D5W RTU 1 GM/50 ML RTUPB IV SCH ×3 (05:23→18:20)
[2018-11-20 06:27] LABS: ABSOLUTE EOSINOPHILS # (AUTO) 0.4 10^3/uL (0.0-0.6); ABSOLUTE MONOCYTES (AUTO) 0.9 10^3/uL (0.1-1.4); ABSOLUTE NEUT (AUTO) 4.1 10^3/uL (1.7-8.2); BASOPHILS % (AUTO) 0.6 % (0-2); EOSINOPHILS % (AUTO) 5.7 % (0-6); HEMOGLOBIN 12.5 g/dL (13.5-17.0); LYMPHOCYTES % (AUTO) 26.8 % (13-45); MEAN CORPUSCULAR HGB CONC 34.7 g/dL (32.0-36.0); MEAN CORPUSCULAR VOLUME 81 fl (80-97); MONOCYTES % (AUTO) 11.7 % (3-13); PLATELET COUNT 299 10^3/uL (150-450); RED BLOOD COUNT 4.47 10^6/uL (4.35-5.55); RED CELL DISTRIBUTION WIDTH 13.9 % (11.5-14.0); SEGMENTED NEUTROPHILS % (AUTO) 55.2 % (42-78); TOTAL CELLS COUNTED % (AUTO) 100 %; WHITE BLOOD COUNT 7.5 10^3/uL (4.0-10.5)
[2018-11-20 06:48] LABS: ANION GAP 9 (5-19); BLOOD UREA NITROGEN 17 mg/dL (7-20); CARBON DIOXIDE 26 mmol/L (22-30); CHLORIDE 101 mmol/L (98-107); GLUCOSE 98 mg/dL (75-110); POTASSIUM 3.9 mmol/L (3.6-5.0); SODIUM 135.9 mmol/L (137-145)
[2018-11-20] MEDS: METFORMIN HCL 500 MG TABLET PO SCH ×2 (08:23→18:21)
[2018-11-20] MEDS: GLIMEPIRIDE 4 MG TABLET PO SCH (08:23)
[2018-11-20] MEDS: INSULIN LISPRO 100 UNIT/ML 3 ML VIAL SUBCUT SCH ×3 (08:24→18:34)
[2018-11-20] MEDS: ASPIRIN 81 MG TABLET, ENT COATED PO SCH (09:42)
[2018-11-20] MEDS: LOSARTAN POTASSIUM 50 MG TABLET PO SCH (09:42)
[2018-11-20] MEDS: ENOXAPARIN SODIUM INJ 40 MG/0.4 ML DISP.SYRIN SUBCUT SCH (09:43)
[2018-11-20] MEDS: HYDROCHLOROTHIAZIDE 25 MG TABLET PO SCH (09:43)
--- NOTE | 2018-11-20 16:06 | PDOC TRANSFER SUMMARY ---
General - Admit/Disc Date/PCP Admission Date/Primary Care Provider: 11/14/18 12:10 GAURAV REZA MD Discharge Date: 11/20/18 - Discharge Diagnosis (1) Abdominal wall abscess Is this a current diagnosis for this admission?: Yes (2) T2DM (type 2 diabetes mellitus) Is this a current diagnosis for this admission?: Yes (3) HTN (hypertension) Is this a current diagnosis for this admission?: Yes (4) HLD (hyperlipidemia) Is this a current diagnosis for this admission?: Yes - Additional Information Resuscitation Status: Full Code Home Medications: Aspirin [Ecotrin 81 mg EC Tablet] 81 mg PO DAILY 11/14/18 Empagliflozin [Jardiance] 25 mg PO DAILY 11/14/18 Glimepiride [Amaryl 4 mg Tablet] 4 mg PO DAILY 11/14/18 Hydrochlorothiazide [Hydrodiuril 25 mg Tablet] 25 mg PO DAILY 11/14/18 Hydroxyzine HCl [Atarax 25 mg Tablet] 25 mg PO QIDP PRN 11/14/18 Losartan Potassium [Cozaar 50 mg Tablet] 50 mg PO DAILY 11/14/18 Metformin HCl [Glucophage 500 mg Tablet] 1,000 mg PO BID 11/14/18 Simvastatin [Zocor 40 mg Tablet] 40 mg PO QHS 11/14/18 History of Present Illness Admission Date/PCP: 11/14/18 12:10 GAURAV REZA MD Patient complains of: Swelling in the lower abdomen History of Present Illness: HANS PLASCENCIA is a 63 year old male, he has a history of type 2 diabetes mellitus, he came to the emergency room for evaluation of swelling in the lower abdomen involving the suprapubic mons pubis. He has a history of MRSA skin abscesses in the past that was incised and drained. In the emergency room he was evaluated the presentation was consistent with abscess, the hemoglobin A1c is 10 suggesting poorly controlled diabetes mellitus. Patient was seen by the surgeon plant floor automation manager Dr. Kwabena Marie, he was taken to the OR for incision and drainage and debridement of suprapubic abscess. Copious amount of abscess was identified in the suprapubic area there are multiloculated abscess in the subcutaneous fat Hospital Course Hospital Course: Patient was seen by surgicalist and taken to the OR for I&D with drainage of his suprapubic abscess. His wound culture did grew methicillin sensitive staphylococcus aureus. He was initially managed with IV Vancomycin that was subsequently changed to IV Cefazolin based on culture sensitivity findings. Patient will be discharge. Patient remain afebrile. He will be transition to oral Keflex 500 mg p.o q6 hours x 7 days. His I&D surgical wound was managed with wound vac but he will transition to wet-to-dry dressing. Patient will be transferred to [facility] in [place] today for short term rehabilitation and wound management. Physical Exam Vital Signs: Temp Pulse Resp BP Pulse Ox 98.4 F 84 16 115/81 99 11/20/18 12:00 11/20/18 12:00 11/20/18 12:00 11/20/18 12:00 11/20/18 12:00 Intake & Output 11/19/18 11/20/18 11/21/18 06:59 06:59 06:59 Intake Total 1920 2180 50 Output Total 1455 2600 280 Balance 465 -420 -230 Weight 93.9 kg 93.2 kg 93.2 kg General appearance: PRESENT: no acute distress Head exam: PRESENT: atraumatic, normocephalic Eye exam: PRESENT: conjunctiva pink. ABSENT: pallor, scleral icterus Ear exam: PRESENT: normal external ear exam Mouth exam: PRESENT: moist Respiratory exam: PRESENT: clear to auscultation eduardo Cardiovascular exam: PRESENT: RRR. ABSENT: diastolic murmur, rubs, systolic murmur GI/Abdominal exam: PRESENT: normal bowel sounds, soft. ABSENT: distended, guarding, mass, organomegaly, rebound, tenderness Extremities exam: ABSENT: pedal edema Musculoskeletal exam: ABSENT: tenderness Neurological exam: PRESENT: alert, awake, oriented to person, oriented to place, oriented to time, oriented to situation, CN II-XII grossly intact. ABSENT: motor sensory deficit Psychiatric exam: PRESENT: appropriate affect, normal mood. ABSENT: homicidal ideation, suicidal ideation Skin exam: PRESENT: dry, warm, other - suprapubic region I&D wound with wound vac device attached. Resolving surrounding erythema. No significant tenderness to palpation. Results Laboratory Results: 11/20/18 05:52 11/20/18 05:52 11/20/18 11/20/18 05:52 05:52 WBC 7.5 RBC 4.47 Hgb 12.5 L Hct 36.0 L MCV 81 MCH 28.0 MCHC 34.7 RDW 13.9 Plt Count 299 Seg Neutrophils % 55.2 Lymphocytes % 26.8 Monocytes % 11.7 Eosinophils % 5.7 Basophils % 0.6 Absolute Neutrophils 4.1 Absolute Lymphocytes 2.0 Absolute Monocytes 0.9 Absolute Eosinophils 0.4 Absolute Basophils 0.0 Sodium 135.9 L Potassium 3.9 Chloride 101 Carbon Dioxide 26 Anion Gap 9 BUN 17 Creatinine 0.92 Est GFR ( Amer) > 60 Est GFR (Non-Af Amer) > 60 Glucose 98 Calcium 10.0 11/14/18 13:48 Blood Blood Culture - Final NO GROWTH IN 5 DAYS 11/14/18 11:52 Blood Blood Culture - Final NO GROWTH IN 5 DAYS Impressions: Chest X-Ray 11/14/18 11:34 IMPRESSION: NO SIGNIFICANT RADIOGRAPHIC FINDING IN THE CHEST. Transfer Plan - Disposition Transfer Plan: Transfer to [facility] for short term rehabilitation and wound management. Qualifiers - * PATIENT BEING DISCHARGED WITH ANY OF THE FOLLOWING DIAGNOSIS: No Plan Discharge Plan: Transfer to [facility] for short term rehabilitation with wound management. Facility staff should call office for follow up appointment before discharge from the facility.
[2018-11-20 17:57] VITALS: BP 124/70
== END 2018-11-20 19:52 | disposition short-term general hospital (02) | DRG 572 ==
LOC: ER 10:16 → EH 11:44 → UNDOADMIN 11:44 → EH 12:00 → 2N 14:07
PROVIDERS: ADMIT Internal Medicine Geriatric Medicine; ATTEND Internal Medicine Geriatric Medicine
PROC: 0JB80ZZ Excision of Abdomen Subcutaneous Tissue and Fascia, Open Approach (ICD-10-PCS; principal; 2018-11-14 15:30)
PROC: 2W03X6Z Change Pressure Dressing on Abdominal Wall (ICD-10-PCS; 2018-11-18)
DX: L02.211 Cutaneous abscess of abdominal wall (principal); E11.42 Type 2 diabetes mellitus with diabetic polyneuropathy; E78.5 Hyperlipidemia, unspecified; I10 Essential (primary) hypertension; B95.61 Methicillin susceptible Staphylococcus aureus infection as the cause of diseases classified elsewhere; E11.65 Type 2 diabetes mellitus with hyperglycemia; Z79.82 Long term (current) use of aspirin; Z79.84 Long term (current) use of oral hypoglycemic drugs; Z79.899 Other long term (current) drug therapy; Z86.14 Personal history of Methicillin resistant Staphylococcus aureus infection; Z79.4 Long term (current) use of insulin
CPT/HCPCS: 36415; 71045; 800; 80048; 80053; 80076; 80202; 82962; 83036; 84439; 84443; 85025; 85730; 87040; 87070; 87075; 87077; 87186; 87205; 88304; 93005; 93010; 99285; J0131; J0690; J1650; J1815; J2001; J2250; J2405; J2704; J3010; J3370; J3490; J7030; J7060